=== PATIENT | male | born 1960 | race Caucasian/White ===

== ENCOUNTER 2018-06-13 08:22 | Emergency (ER) | payer OTHER ==
[~2018-06-13] VITALS: Ht 188 cm; Wt 112.0 kg
[2018-06-13 08:24] VITALS: BP 145/87; PULSE 78; RESP 18; Ht 188 cm; Wt 112.0 kg
[2018-06-13] MEDS ORDERED: KETOROLAC 30 MG INJ IM STA (08:45)
--- NOTE | 2018-06-13 08:57 | ERD ---
ER Documentation Chief Complaint Chief Complaint pt is bib family with c/o right neck and arm pain since Sun, "heard snap" HPI This is a 58-year-old male who reports to the emergency room with complaint of pain to right neck and right arm times 5 days. Patient states he was sleeping and heard a pop in his neck and has had severe pain since then. Patient has history of fractured disc in neck since 2006. Patient did not receive surgery for this. Patient states he has no chronic deficits to right arm, he is not on chronic pain medications. Denies recent fevers however states last week he was sick with the flu. Patient is able to move arm independently and neck with full range of motion of flexion and extension. These movements cause severe pain. Patient reports paresthesia from top of right neck down into right thumb. ROS All systems reviewed and are negative except as per history of present illness. Medications Home Meds Active Scripts Docusate Sodium* (Colace*) 100 Mg Capsule, 100 MG PO BID for constipation, #30 CAP Prov:DEUCE RAYMOND NP 06/13/18 Hydrocodone/Acetaminophen ([place] 10-325 Tablet) 1 Each Tablet, 1 TAB PO BID PRN for PAIN for 7 Days, #14 TAB Prov:DEUCE RAYMOND NP 06/13/18 Prednisone* (Prednisone*) 20 Mg Tab, 40 MG PO DAILY for 4 Days, TAB Prov:DEUCE RAYMOND NP 06/13/18 Allergies Allergies: Coded Allergies: No Known Allergy (Unverified , 09/01/14) PMhx/Soc History of Surgery: Yes (Hand surgery) Anesthesia Reaction: No Hx Neurological Disorder: No Hx Respiratory Disorders: No Hx Cardiac Disorders: No Hx Psychiatric Problems: No Hx Miscellaneous Medical Probl: No Hx Alcohol Use: Yes (once or twice a year) Hx Substance Use: No Hx Tobacco Use: Yes (quit 10 years ago) FmHx Family History: No diabetes, No coronary disease, No other Physical Exam Vitals Vital Signs Date Temp Pulse Resp B/P (MAP) Pulse Ox O2 O2 Flow FiO2 Time Delivery Rate 06/13/18 98.4 78 18 145/87 99 08:24 (106) Physical Exam GENERAL APPEARANCE: Well developed, well nourished, alert and cooperative, and appears to be in no mild distress. HEAD: normocephalic. EYES: PERRL, EOMI. Vision is grossly intact. EARS: External auditory canals and tympanic membranes clear, hearing grossly intact. NOSE: No nasal discharge. THROAT: Oral cavity and pharynx normal. No inflammation, swelling, exudate, or lesions. Teeth and gingiva in good general condition. NECK: Neck supple, non-tender without lymphadenopathy, masses or thyromegaly. Upper neck musculature spastic and tender. CARDIAC: Normal S1 and S2. No S3, S4 or murmurs. Rhythm is regular. There is no peripheral edema, cyanosis or pallor. Extremities are warm and well perfused. Capillary refill is less than 2 seconds. No carotid bruits. LUNGS: Clear to auscultation and percussion without rales, rhonchi, wheezing or diminished breath sounds. ABDOMEN: Positive bowel sounds. Soft, non-distended, non-tender. No guarding or rebound. No murmurs MUSCULOSKELETAL: Adequately aligned spine. ROM intact spine and extremities. No joint erythema or tenderness. Normal muscular development. Normal gait. BACK: Examination of the spine reveals normal gait and bracing posture due to neck pain, patient bracing right arm to prevent spasm, no spinal deformity, symmetry of spinal muscles. EXTREMITIES: No significant deformity or joint abnormality. No edema. Peripheral pulses intact. NEUROLOGICAL: CN II-XII intact. Strength intact throughout. Paraesthesia present from top of right neck, down into scapula, down into right thumb. SKIN: Skin normal color, texture and turgor with no lesions or eruptions PSYCHIATRIC: The mental examination revealed the patient was oriented to person, place, and time. The patient was able to demonstrate good judgment and reason, without hallucinations, abnormal affect or abnormal behaviors during the examination. Patient is not suicidal. Results 24 hrs Current Medications Medications Dose Sig/Yuridia Start Time Status Last (Trade) Ordered Route PRN Stop Time Admin Dose Reason Admin 10 mg ONCE ONCE 06/13/18 DC 06/13/18 Dexamethasone IM 09:00 08:55 (Decadron) 06/13/18 09:01 Ketorolac 30 mg ONCE STAT 06/13/18 DC 06/13/18 Tromethamine IM 08:45 08:55 (Toradol) 06/13/18 08:48 Diazepam 5 mg ONCE ONCE 06/13/18 DC 06/13/18 (Valium) PO 09:00 08:55 06/13/18 09:01 1 tab ONCE ONCE 06/13/18 DC 06/13/18 Acetaminophen PO 10:30 10:44 / 06/13/18 10:31 Hydrocodone Bitart ([place] ()) No CT evidence of acute fracture or malalignment. Cervical spondylosis with degenerative disc disease and uncovertebral spurring most severe at C5-C6 and C6-C7 with posterior disc osteophyte complexes mildly effacing the ventral thecal sac and causing mild central canal stenosis. Uncovertebral spurring asymmetric to the right with severe neural foraminal narrowing at C5-C6 and C6-C7. Diffuse sclerosis of the vertebral bodies including C2-C6 levels, which is nonspecific. Further clinical workup may include further hematologic workup for bone marrow replacement processes including myelofibrosis, PSA levels, and renal osteodystrophy. Cervical spine MR may also be helpful in assessing the fat marrow signal and better assessing the thecal sac, given the degenerative disc disease described above. Mildly prominent cervical lymph nodes, which are nonspecific. Partially visualized sinus disease involving the maxillary and sphenoid sinuses. These findings were discussed with ED physician Deuce Farrar at 06/13/2018 10:17:32 AM. RPTAT: EE Inocencio Angel Physician Desulfurizer Hand Date Time Procedures/MDM This is a 58-year-old male patient who presents to the emergency room with complaint of pain in neck. Patient has history of fractured disc in the right neck. Differential diagnosis includes nerve impingement, infection, abscess, cervical fracture, meningitis, malignancy. ED COURSE: The patient was stable throughout ED course. I kept the patient and/or family informed of laboratory and diagnostic imaging results throughout the ED course. DIAGNOSTIC IMAGING: Cervical spondylosis with degenerative disc disease and uncovertebral spurring most severe at C5-C6 and C6-C7 with posterior disc osteophyte complexes mildly effacing the ventral thecal sac and causing mild central canal stenosis. Uncovertebral spurring asymmetric to the right with severe neural foraminal narrowing at C5-C6 and C6-C7. Diffuse sclerosis of the vertebral bodies including C2-C6 levels, which is nonspecific. Further clinical workup may include further hematologic workup for bone marrow replacement processes including myelofibrosis, PSA levels, and renal osteodystrophy. Cervical spine MR may also be helpful in assessing the fat marrow signal and better assessing the thecal sac, given the degenerative disc disease described above. Mildly prominent cervical lymph nodes, which are nonspecific. Partially visualized sinus disease involving the maxillary and sphenoid sinuses. Results discussed with ROBINSON Mohan and Dr. Walden. It was determined that patient is appropriate for outpatient treatment as he has established primary care doct or and is reliable to follow-up. Results discussed with patient, immediate follow-up emphasized. Pt and state they will make appointments today. Patient works at [employer], states he is going to follow-up there. Strict ER precautions provided, Patient placed in arm sling for comfort with instructions for appropriate use. Instructions provided on home care including use of heat, ice, NSAIDS, and narcotic. MEDICATIONS GIVEN: Patient tolerated medication well with no adverse reactions. Patient reported improvement in pain although pain was not relieved in ER. Patient provided with additional narcotic medication with reported improvement in pain. Patient has been prescribed narcotic medications. Patient was instructed that narcotics cannot be refilled from our emergency department and these medications are for temporary acute condition and should be replaced by use of Tylenol, ibuprofen, and add adjunctive therapy such as use of heat or cooling. Patient instructed that narcotics are habit forming and can lead to dependency. Patient instructed to use stool softener and increase hydration while taking narcotics. Patient instructed to not operate heavy machinery, operate vehicle, care for small children while on narcotic medication. [facility] database reviewed for controlled substance history. There is no indication the patient is abusing prescription medications or is at risk for misuse. History and Physical exam demonstrate the prescribed medication is indicated for the treatment of the patient's condition. Patient has been prescribed narcotic medications. Patient was instructed that narcotics cannot be refilled from our emergency department and these medications are for temporary acute condition and should be replaced by use of Tylenol, ibuprofen, and add adjunctive therapy such as use of heat or cooling. Patient instructed that narcotics are habit forming and can lead to dependency. Patient instructed to use stool softener and increase hydration while taking narcotics. Patient instructed to not operate heavy machinery, operate vehicle, care for small children while on narcotic medication. Departure Diagnosis: Primary Impression: Neck pain Patient Instructions: Muscle Spasm Referrals: RICH FRANZ MD Additional Instructions: Thank you very much for allowing us to participate in your care. Your health and safety is our top priority at [facility]. Call your primary care doctor TOMORROW for an appointment during the next 2-4 days and bring all the information and medications prescribed. Have prescriptions filled and follow precisely the directions on the label. If the symptoms get worse and your provider is unavailable, return to the Emergency Department immediately. DEUCE RAYMOND NP Jun 13, 2018 08:57
[2018-06-13] MEDS ORDERED: DEXAMETHASONE 10 MG/ML 1 ML INJ IM ONE (09:00)
[2018-06-13] MEDS ORDERED: DIAZEPAM 5 MG TAB PO ONE (09:00)
[2018-06-13] MEDS ORDERED: HYDROCODONE/APAP (10/325) TAB PO ONE (10:30)
[2018-06-13] MEDS ORDERED: DOCU-144 PO (10:32)
[2018-06-13] MEDS ORDERED: PRED20TA PO (10:32)
[2018-06-13] MEDS ORDERED: HYDR-3980 PO (10:32)
== END 2018-06-13 10:50 | disposition home or self-care (01) ==
LOC: FTE 08:22
DX: M54.2 Cervicalgia (principal); Z87.891 Personal history of nicotine dependence
CPT/HCPCS: 72125; 96372; 99285; J1100; J1885